=== PATIENT | female | born 1975 | race Caucasian/White ===

== ENCOUNTER 2022-03-06 19:35 | Emergency (ER) | payer SELFPAY | END 2022-03-06 21:52 | disposition home or self-care (01) | LOC: CSHERS 19:35 | DX: S16.1XXA Strain of muscle, fascia and tendon at neck level, initial encounter (principal); X50.1XXA Overexertion from prolonged static or awkward postures, initial encounter ==

== ENCOUNTER 2022-07-03 12:43 | Emergency (ER) | payer SELFPAY | END 2022-07-03 15:49 | disposition home or self-care (01) | LOC: CSHERS 12:43 | DX: S81.012A Laceration without foreign body, left knee, initial encounter (principal); F17.210 Nicotine dependence, cigarettes, uncomplicated; W26.9XXA Contact with unspecified sharp object(s), initial encounter | CPT/HCPCS: 99282 ==

== ENCOUNTER 2023-01-15 09:46 | Emergency (ER) | payer SELFPAY | END 2023-01-15 11:15 | disposition home or self-care (01) | LOC: CSHERS 09:46 | DX: J03.90 Acute tonsillitis, unspecified (principal); B34.9 Viral infection, unspecified; F17.210 Nicotine dependence, cigarettes, uncomplicated | CPT/HCPCS: 87081; 87430; 99283 ==